=== PATIENT | male | born 1955 | race Caucasian/White ===

== ENCOUNTER 2017-07-23 12:03 | Inpatient (IN) | payer MEDICARE, MEDICAID ==
[~2017-07-23] VITALS: Ht 167.6 cm; Wt 68.0 kg
[~2017-07-23 12:03] MED LIST: SULF1TAB47 PO
[2017-07-23] MEDS ORDERED: IV NORMAL SALINE 1000 ML BAG IV ONE (12:30)
[2017-07-23] MEDS ORDERED: ACETAMINOPHEN ES 500 MG TABLET PO ONE (12:30)
[2017-07-23] MEDS ORDERED: LEVE500T20 PO (12:32)
[2017-07-23] MEDS ORDERED: ASCO500C18 PO (12:32)
[2017-07-23] MEDS ORDERED: SERT100T PO (12:32)
[2017-07-23] MEDS ORDERED: MULT1TAB73 PO (12:32)
[2017-07-23] MEDS ORDERED: CHLO1LIQ PO ×2 (12:32→13:04)
[2017-07-23 12:56] LABS: BASOPHILS % (AUTO) 0.2 % (0.0-2.0); EOSINOPHILS % (AUTO) 0.4 % (0.0-7.0); HEMATOCRIT 44.4 % (36.7-47.1); HEMOGLOBIN 14.6 g/dL (12.5-16.3); LYMPHOCYTES # (AUTO) 1.8 K/uL (20.0-40.0); LYMPHOCYTES % (AUTO) 18.1 % (20.5-51.5); MEAN CORPUSCULAR HGB CONC 33 g/dL (32.5-36.3); MEAN CORPUSCULAR VOLUME 94.2 fL (73.0-96.2); MONOCYTES # (AUTO) 0.9 K/uL (2.0-10.0); MONOCYTES % (AUTO) 9.2 % (0.0-11.0); NEUTROPHILS # (AUTO) 7.2 K/uL (1.8-8.9); NEUTROPHILS % (AUTO) 72.1 % (38.5-71.5); PLATELET COUNT (AUTO) 197 K/uL (152-348); RED BLOOD CELL COUNT(AUTO) 4.71 MIL/uL (4.06-5.63)
[2017-07-23] MEDS ORDERED: ACETAMINOPHEN ES 500 MG TABLET ONE (12:59)
[2017-07-23] MEDS ORDERED: ALEN35TA29 PO (13:04)
[2017-07-23] MEDS ORDERED: HYDR30CR10 TP (13:04)
[2017-07-23] MEDS ORDERED: DIPH25TA62 PO (13:04)
[2017-07-23] MEDS ORDERED: EMTR1TAB14 PO (13:04)
[2017-07-23] MEDS ORDERED: TRIA15CR2 TP (13:04)
[2017-07-23] MEDS ORDERED: DIPH1TAB PO (13:04)
[2017-07-23] MEDS ORDERED: MAGN400O6 PO (13:04)
[2017-07-23] MEDS ORDERED: ANTACID PO (13:04)
[2017-07-23] MEDS ORDERED: OXYB5TAB PO (13:04)
[2017-07-23] MEDS ORDERED: NEOM28OI12 TP (13:04)
[2017-07-23] MEDS ORDERED: MAG30ORA PO (13:04)
[2017-07-23] MEDS ORDERED: MIRT15TA7 PO (13:04)
[2017-07-23] MEDS ORDERED: ACET-73 PO (13:04)
[2017-07-23] MEDS ORDERED: GUAI100S9 PO (13:04)
[2017-07-23] MEDS ORDERED: CALC-34 PO (13:04)
[2017-07-23] MEDS ORDERED: IBUP-1953 PO (13:04)
[2017-07-23] MEDS ORDERED: DOCU-141 PO (13:04)
--- NOTE | 2017-07-23 13:13 | NUR ---
[address] per Dr. Tracy order, ST. result given to Dr. Tracy
[2017-07-23 13:21] LABS: POTASSIUM 4.4 mmol/L (3.5-5.1)
[2017-07-23 13:24] LABS: BILIRUBIN,DIRECT 0.1 mg/dL (0.0-0.2); BILIRUBIN,TOTAL 0.6 mg/dL (0.2-1.0)
--- NOTE | 2017-07-23 13:45 | NUR ---
PATIENT IS AWAKE AND ALERT. DENIES PAIN.
--- NOTE | 2017-07-23 14:45 | NUR ---
PATIENT IS AWAKE AND ALERT WITH NO COMPLAINTS.
[2017-07-23] MEDS ORDERED: LEVOFLOXACIN 750 MG/D5W 150 ML PIGGYBACK IV ONE (16:00)
[2017-07-23] MEDS ORDERED: ENOXAPARIN SODIUM 60 MG/0.6 ML DISP.SYRIN SQ ONE (16:15)
--- NOTE | 2017-07-23 16:20 | NUR ---
PATIENT REFUSED JUICE BUT DRANK WATER.
[2017-07-23] MEDS ORDERED: LEVOFLOXACIN 750MG/D5W 150 ML IV ONE (16:27)
[2017-07-23] MEDS ORDERED: ENOXAPARIN SODIUM 100 MG/ML DISP.SYRIN SQ ONE (16:27)
[2017-07-23 16:42] LABS: *BILIRUBIN,URIN NEGATIVE (NEGATIVE); *BLOOD, URINE 1+ (NEGATIVE); *COLOR,URINE DARK YELLOW (YELLOW); *KETONES,URINE NEGATIVE (NEGATIVE); *PROTEIN,URINE 2+ (NEGATIVE); *UROBILINOGEN,URINE 0.2 E.U./dl (NORMAL); LEUKOCYTE ESTERASE ,URINE NEGATIVE (NEGATIVE); NITRITE, URINE NEGATIVE (NEGATIVE); PH,URINE 5.5 (5.0-8.0); UGLUCOSE NEGATIVE (NEGATIVE)
[2017-07-23 17:03] LABS: *CLARITY,URINE HAZY (CLEAR)
[2017-07-23 17:04] LABS: COARSE GRANULAR CASTS,URINE 0-3 /LPF; MUCUS,URINE MANY /LPF (0-FEW); WBC,URINE 0-3 /HPF (0-3)
[2017-07-23] MEDS ORDERED: MORPHINE SULFATE 4 MG/1 ML DISP.SYRIN IV ONE (17:30)
--- NOTE | 2017-07-23 18:05 | NUR ---
URINE SENT TO LAB.
[2017-07-23] MEDS ORDERED: IOHEXOL 300MG/ML 100 ML INFUS..BTL ONE (19:40)
[2017-07-23] MEDS ORDERED: IV NORMAL SALINE 250 ML IV ONE (19:40)
--- NOTE | 2017-07-23 20:19 | NUR ---
PT RETURNED FROM CT SCAN, POSTIONED FOR COMFORT.
--- NOTE | 2017-07-23 21:30 | NUR ---
PATIENT TRANSFERRED FROM ER INTO TELEMETRY FLOOR AT THIS TIME [facility]ROUGH [facility] IN STABLE CONDITION, NO S/S OF DISTRESS, VITAL SIGNS STABLE. PLACED ON STAKEHOLDER MANAGER. PATIENT IS NON-VERBAL, APPEARS FEARFUL AND CONFUSED. [place] SPEAKING ONLY. ABLE TO COMMUNICATE WITH PATIENT. AWAITING ADMISSION ORDERS. BED IN LOCKED/LOW POSITION, SIDE RAILS UP X2, BED ALARM ON, CALL LIGHT WITHIN REACH. SAFETY/COMFORT WILL BE PROVIDED.
--- NOTE | 2017-07-23 22:00 | NUR ---
TEMPERATURE ELEVATED, COOLING MEASURES PROVIDED.
[2017-07-23 22:21] VITALS: BP 104/62
[2017-07-23] MEDS ORDERED: ALBUTEROL SULFATE 1.25 MG/3 ML NEBU NEB PRN (22:45)
[2017-07-23] MEDS ORDERED: MORPHINE SULFATE 2 MG/1 ML DISP.SYRIN IV PRN (22:45)
[2017-07-23] MEDS ORDERED: LEVETIRACETAM IV 1,000 MG in IV DEXTROSE 5% 100 ML IV SCH (22:45)
[2017-07-23] MEDS ORDERED: ACETAMINOPHEN 650 MG SUPP.RECT RC PRN (22:45)
[2017-07-23] MEDS ORDERED: LORAZEPAM 2 MG/1 ML VIAL IV PRN (22:45)
[2017-07-23] MEDS ORDERED: ONDANSETRON 4 MG/2 ML VIAL IV PRN (22:45)
[2017-07-23] MEDS: IV D5/ 0.9% NACL 1,000 ML IV PRN (23:25)
[2017-07-24 00:25] VITALS: BP 104/73
[2017-07-24] MEDS ORDERED: LEVETIRACETAM 500 MG/5 ML VIAL IV ONE (00:27)
[2017-07-24 04:00] VITALS: BP 110/63
[2017-07-24 08:04] LABS: BASOPHILS % (AUTO) 0.3 % (0.0-2.0); EOSINOPHILS # (AUTO) 0.1 K/uL (0.0-0.7); EOSINOPHILS % (AUTO) 1.7 % (0.0-7.0); LYMPHOCYTES # (AUTO) 1.3 K/uL (20.0-40.0); MEAN CORPUSCULAR HEMOGLOBIN 31.9 uug (23.8-33.4); MEAN CORPUSCULAR HGB CONC 34 g/dL (32.5-36.3); MONOCYTES # (AUTO) 0.7 K/uL (2.0-10.0); MONOCYTES % (AUTO) 10.4 % (0.0-11.0); NEUTROPHILS # (AUTO) 4.8 K/uL (1.8-8.9); NEUTROPHILS % (AUTO) 68.6 % (38.5-71.5); PLATELET COUNT (AUTO) 161 K/uL (152-348); RED BLOOD CELL COUNT(AUTO) 3.94 MIL/uL (4.06-5.63)
[2017-07-24] MEDS ORDERED: MORPHINE SULFATE 4 MG/1 ML DISP.SYRIN IV PRN (08:15)
[2017-07-24 08:31] LABS: HEMOGLOBIN 12.6 g/dL (12.5-16.3); THYROID STIMULATING HORMONE 4.802 mIU/mL (0.358-3.740); WHITE BLOOD COUNT (AUTO) 7.1 K/uL (3.6-10.2)
[2017-07-24 08:43] LABS: BILIRUBIN,TOTAL 0.6 mg/dL (0.2-1.0); CREATININE 0.8 mg/dL (0.6-1.3); MAGNESIUM 1.9 mg/dL (1.8-2.4); PHOSPHOROUS 2.7 mg/dL (2.5-4.9); POTASSIUM 3.6 mmol/L (3.5-5.1); TOTAL PROTEIN, SERUM 6.6 g/dL (6.4-8.2)
[2017-07-24] MEDS: FAMOTIDINE. 20 MG/2 ML VIAL IV SCH ×2 (10:21→21:25)
[2017-07-24] MEDS: LEVETIRACETAM IV 1,000 MG in IV DEXTROSE 5% 100 ML IV SCH ×2 (10:24→21:26)
[2017-07-24] MEDS: ENOXAPARIN SODIUM 80 MG/0.8 ML DISP.SYRIN SQ SCH ×2 (10:24→21:25)
[2017-07-24 11:24] VITALS: BP 99/63
[2017-07-24] MEDS: IV D5/ 0.9% NACL 1,000 ML IV PRN (13:54)
[2017-07-24 15:32] VITALS: BP 96/60
[2017-07-24 19:44] VITALS: BP 93/56
--- NOTE | 2017-07-24 20:00 | NUR ---
nsg: pt received a/o x 3. denies discomfort. on cont ivf tele, SR. has right sided weakness with facial drooping due to old stroke. will cont to monitor.
[2017-07-24 23:32] VITALS: BP 82/49
[2017-07-24] MEDS: PIPERACILLIN/TAZOBACTAM/D5W 3.375 G in PREMIXED 1 EACH IV SCH (23:37)
[2017-07-24] MEDS ORDERED: PIPERACILLIN SODIUM/TAZO 3.375 GM VIAL ONE (23:51)
[2017-07-25 01:03] VITALS: BP 94/61
[2017-07-25 03:32] VITALS: BP 98/63
[2017-07-25] MEDS: PIPERACILLIN/TAZOBACTAM/D5W 3.375 G in PREMIXED 1 EACH IV SCH ×3 (05:27→23:30)
--- NOTE | 2017-07-25 05:56 | NUR ---
NSG: Pt awake, iv on right antecubital got pulled out. started iv on left hand heplock. all needs attended. kept clean and dry. repositioned. cont with treatment plan. remains npo.
[2017-07-25 06:51] LABS: BASOPHILS % (AUTO) 0.4 % (0.0-2.0); EOSINOPHILS # (AUTO) 0.2 K/uL (0.0-0.7); EOSINOPHILS % (AUTO) 2.9 % (0.0-7.0); HEMATOCRIT 35.4 % (36.7-47.1); LYMPHOCYTES # (AUTO) 1.3 K/uL (20.0-40.0); LYMPHOCYTES % (AUTO) 20.2 % (20.5-51.5); MEAN CORPUSCULAR HEMOGLOBIN 31.7 uug (23.8-33.4); MEAN CORPUSCULAR HGB CONC 34 g/dL (32.5-36.3); MEAN CORPUSCULAR VOLUME 93.3 fL (73.0-96.2); MONOCYTES # (AUTO) 0.6 K/uL (2.0-10.0); MONOCYTES % (AUTO) 9.2 % (0.0-11.0); NEUTROPHILS # (AUTO) 4.5 K/uL (1.8-8.9); NEUTROPHILS % (AUTO) 67.3 % (38.5-71.5); PLATELET COUNT (AUTO) 172 K/uL (152-348); WHITE BLOOD COUNT (AUTO) 6.6 K/uL (3.6-10.2)
[2017-07-25 07:55] LABS: BILIRUBIN,TOTAL 0.6 mg/dL (0.2-1.0); CREATININE 0.9 mg/dL (0.6-1.3); PHOSPHOROUS 2.5 mg/dL (2.5-4.9); POTASSIUM 3.4 mmol/L (3.5-5.1); TOTAL PROTEIN, SERUM 6.3 g/dL (6.4-8.2)
[2017-07-25 08:00] VITALS: BP 101/65
[2017-07-25] MEDS: IV D5/ 0.9% NACL 1,000 ML IV PRN (09:13)
[2017-07-25] MEDS: LEVETIRACETAM IV 1,000 MG in IV DEXTROSE 5% 100 ML IV SCH ×2 (09:54→20:50)
[2017-07-25] MEDS: FAMOTIDINE. 20 MG/2 ML VIAL IV SCH ×2 (09:55→20:50)
[2017-07-25] MEDS: ENOXAPARIN SODIUM 80 MG/0.8 ML DISP.SYRIN SQ SCH ×2 (09:55→20:51)
[2017-07-25] MEDS ORDERED: POTASSIUM CHLORIDE 50 ML IV SCH (12:30)
[2017-07-25] MEDS ORDERED: POTASSIUM CHLORIDE 10 MEQ in IV DEXTROSE 5% 100 ML IV SCH (13:30)
[2017-07-25 16:00] VITALS: BP 106/65
[2017-07-25 19:30] VITALS: BP 100/70
--- NOTE | 2017-07-25 20:00 | NUR ---
AWAKE,CONFUSED,PULLED IV ONCE .UNABLE TO COMPREHEND,PT MADE COMFORTABLE
--- NOTE | 2017-07-25 21:00 | NUR ---
PT PULLED CATHETER ,PUT IT IN HIS BELONGING BAG.PT MADE COMFORTABLE.
[2017-07-26 02:30] VITALS: BP 110/80
--- NOTE | 2017-07-26 02:30 | NUR ---
PT FOUND ON THE FLOOR.,BACK TO BED NO COMPLAINTS ABLE TO FOLLOW INSTRUCTION.DR SOTO CALLED AND STAT CT OF HEAD ORDERED , BACK TO BED.
[2017-07-26 04:00] VITALS: BP 101/66
[2017-07-26] MEDS: PIPERACILLIN/TAZOBACTAM/D5W 3.375 G in PREMIXED 1 EACH IV SCH (05:18)
--- NOTE | 2017-07-26 05:48 | NUR ---
PT VERY CONFUSED,PT WANTED TO GO HOME, TEMPORARY SITTER PLACED ON PT.
--- NOTE | 2017-07-26 06:29 | NUR ---
PT BLADDER SCAN 200.PT WANTED TO GET OUT OF BED,ER NURSE DENA INSERTED SHANKAR CATHETER.
--- NOTE | 2017-07-26 08:03 | NUR ---
RECEIVED PATIENT IN BED CONFUSED AND DISORIENTED PULLING ON HIS IV AND SHANKAR HE IS VERY RESTLESS SHOWING SIGNS OF FACIAL GRIMACING UNABLE TO VERBALISE NEEDS MEDICATED WITH MORPHINE ORDERED MADE COMFORTABLE AND WILL CONTINUE TO OBSERVE.
[2017-07-26 08:28] LABS: BASOPHILS % (AUTO) 0.3 % (0.0-2.0); EOSINOPHILS # (AUTO) 0.2 K/uL (0.0-0.7); EOSINOPHILS % (AUTO) 2.7 % (0.0-7.0); HEMATOCRIT 35.4 % (36.7-47.1); LYMPHOCYTES # (AUTO) 1.3 K/uL (20.0-40.0); LYMPHOCYTES % (AUTO) 20.4 % (20.5-51.5); MEAN CORPUSCULAR HEMOGLOBIN 31.4 uug (23.8-33.4); MEAN CORPUSCULAR HGB CONC 34 g/dL (32.5-36.3); MEAN CORPUSCULAR VOLUME 92.4 fL (73.0-96.2); MONOCYTES # (AUTO) 0.5 K/uL (2.0-10.0); MONOCYTES % (AUTO) 8.6 % (0.0-11.0); NEUTROPHILS # (AUTO) 4.2 K/uL (1.8-8.9); PLATELET COUNT (AUTO) 215 K/uL (152-348); RED BLOOD CELL COUNT(AUTO) 3.83 MIL/uL (4.06-5.63); WHITE BLOOD COUNT (AUTO) 6.1 K/uL (3.6-10.2)
[2017-07-26 08:52] LABS: CREATININE 0.8 mg/dL (0.6-1.3); PHOSPHOROUS 2.7 mg/dL (2.5-4.9); POTASSIUM 3.5 mmol/L (3.5-5.1)
[2017-07-26] MEDS: ENOXAPARIN SODIUM 80 MG/0.8 ML DISP.SYRIN SQ SCH (09:22)
[2017-07-26] MEDS: LEVETIRACETAM IV 1,000 MG in IV DEXTROSE 5% 100 ML IV SCH ×2 (09:38→21:21)
--- NOTE | 2017-07-26 10:00 | NUR ---
SHANKAR CATH WITH HEMATURIA WITH FEW CLOTS IRRIGATED AND CHANGED BY THE POST DOCTORAL FELLOW TO FAROESE 16 CUDE CONNECTED TO GRAVITY DRAINAGE AND WILL CONTINUE TO OBSERVE.
[2017-07-26] MEDS: FAMOTIDINE. 20 MG/2 ML VIAL IV SCH ×2 (10:39→21:22)
[2017-07-26 12:14] VITALS: BP 98/61
[2017-07-26] MEDS: IV D5/ 0.9% NACL 1,000 ML IV PRN (12:54)
[2017-07-26] MEDS ORDERED: LIDOCAINE HCL 2% 20 ML VIAL IJ ONE (13:30)
[2017-07-26] MEDS ORDERED: LIDOCAINE 2% (UROJET) 10 ML JELLY MM ONE (13:45)
--- NOTE | 2017-07-26 13:57 | NUR ---
DR ST HERE AND SEEN PATIENT IRRIGATED AND CHANGED THE SHANKAR AND USED THE LIDOCINE JELLY ORDERED.
[2017-07-26 15:28] VITALS: BP 95/56
--- NOTE | 2017-07-26 16:35 | NUR ---
SHANKAR DRAINAGE IS PINKISH AT THIS TIME WITH NO CLOTS NOTED WILL OBSERVE.
--- NOTE | 2017-07-26 18:00 | NUR ---
AWAKE EATING DINNER NO S/S OF PAIN OR DISCOMFORTS SHANKAR STILL WITH PINKISH DRAINAGE WILL CONTINUE TO OBSERVE.
[2017-07-27] MEDS: ENOXAPARIN SODIUM 80 MG/0.8 ML DISP.SYRIN SQ SCH ×2 (00:16→08:32)
[2017-07-27] MEDS ORDERED: ENOXAPARIN SODIUM 40 MG/0.4 ML DISP.SYRIN SQ ONE (00:25)
[2017-07-27] MEDS: IV D5/ 0.9% NACL 1,000 ML IV PRN (03:09)
--- NOTE | 2017-07-27 05:45 | NUR ---
PT SLEPT THROUGHOUT THE SHIFT. NO S/S OF PAIN. SHANKAR CATHETER WITH HEMATURIA. MEDICATION ORDERED WAS GIVEN TO PT. CALL LIGHT WITHIN REACH. SITTER ON BEDSIDE. SAFETY AND COMFORT PROVIDED.
--- NOTE | 2017-07-27 06:30 | NUR ---
SHANKAR CATH IRRIGATION PRN ORDERED. BLOOD CLOTS NOTED. PT NOT IN DISTRESS. AFEBRILE. PICTURE TAKEN ON HIS RIGHT LOWER EXTREMITY.
--- NOTE | 2017-07-27 07:30 | NUR ---
RECEIVED PATIENT IN BED WITH EYES CLOSED BUT EASILY OPENS EYES WHEN NAME IS CALLED BUT DOES NOT ENGAGE IN CONVERSATION ON ROOM AIR WITH NO SHORTNESS OF BREATH AT THIS TIME REMAIN [facility] WITH NO CLOTS AT THIS TIME HE HAS A ONE ON ONE SITTER FOR SAFETY AT [facility] FOR FALLS RELATED TO CONFUSSION AND POOR SAFETY AWARENESS WILL CONTINUE TO OBSERVE
[2017-07-27 07:33] LABS: CREATININE 0.8 mg/dL (0.6-1.3); POTASSIUM 3.3 mmol/L (3.5-5.1)
[2017-07-27 07:36] LABS: BASOPHILS % (AUTO) 0.4 % (0.0-2.0); EOSINOPHILS # (AUTO) 0.2 K/uL (0.0-0.7); EOSINOPHILS % (AUTO) 3.3 % (0.0-7.0); HEMATOCRIT 30.5 % (36.7-47.1); HEMOGLOBIN 10.4 g/dL (12.5-16.3); LYMPHOCYTES # (AUTO) 1.3 K/uL (20.0-40.0); LYMPHOCYTES % (AUTO) 22.3 % (20.5-51.5); MEAN CORPUSCULAR HEMOGLOBIN 31.7 uug (23.8-33.4); MEAN CORPUSCULAR HGB CONC 34 g/dL (32.5-36.3); MEAN CORPUSCULAR VOLUME 93.1 fL (73.0-96.2); MONOCYTES # (AUTO) 0.7 K/uL (2.0-10.0); MONOCYTES % (AUTO) 11.3 % (0.0-11.0); NEUTROPHILS # (AUTO) 3.7 K/uL (1.8-8.9); NEUTROPHILS % (AUTO) 62.7 % (38.5-71.5); PLATELET COUNT (AUTO) 206 K/uL (152-348); RED BLOOD CELL COUNT(AUTO) 3.27 MIL/uL (4.06-5.63)
[2017-07-27] MEDS: FAMOTIDINE. 20 MG/2 ML VIAL IV SCH (08:33)
[2017-07-27] MEDS: LEVETIRACETAM IV 1,000 MG in IV DEXTROSE 5% 100 ML IV SCH (08:35)
[2017-07-27] MEDS ORDERED: RIVAROXABAN 15 MG TABLET PO SCH ×2 (10:30→18:00)
[2017-07-27 11:17] VITALS: BP 91/60
[2017-07-27] MEDS ORDERED: RIVA15TA PO (13:01)
[2017-07-27] MEDS ORDERED: POTASSIUM CHLORIDE 20 MEQ POWDER PACKET PO ONE (14:30)
--- NOTE | 2017-07-27 14:30 | NUR ---
PATIENT IS BEING PREPPED FOR DISCHARGE TO ACUTE REHAB TODAY.
--- NOTE | 2017-07-27 16:00 | NUR ---
DR ST HERE TO SEE PATIENT WITH HAND WRITTEN ORDER WILL ENDORSE TO REHAB TO START THE ORDER.
--- NOTE | 2017-07-27 18:23 | NUR ---
CALLED LALIT AT THE ACUTE REHAB AND REPORT GIVEN TO HER FOR CONTINUING CARE XARELTO GIVEN ORDERED WITH NO ADVERSE OR ALLERGIC REACTIONS AT THIS TIME.PATIENTS MONEY LEFT IN THE HOSPITAL SAFE AND IT WAS ENDORSED TO THE RECEIVING RN.
--- NOTE | 2017-07-27 18:25 | NUR ---
AWAITING FOR ROOM 105 TO BE CLEANSED AND READY TO RECEIVE PATIENT PER THE RECEIVING RN.
--- NOTE | 2017-07-27 18:50 | NUR ---
PATIENT TAKEN DOWN BY W/CHAIR WITH ALL HIS BELONGINGS WITH HIS MONEY LEFT IN THE HOSPITAL SAFE IN SATISFACTORY CONDITION.
[2017-07-28 08:06] LABS: *TESTOSTERONE, SERUM 265 ng/dL (264-916)
== END 2017-07-27 18:40 | DRG 300 ==
LOC: ER 12:03 → TELE 21:18 → MED 07-25 23:20
PROVIDERS: ADMIT Internal Medicine; ATTEND Internal Medicine
PROC: 0T9B70Z Drainage of Bladder with Drainage Device, Via Natural or Artificial Opening (ICD-10-PCS; principal; 2017-07-26)
DX: I82.421 Acute embolism and thrombosis of right iliac vein (principal); I69.351 Hemiplegia and hemiparesis following cerebral infarction affecting right dominant side; F01.50 Vascular dementia, unspecified severity, without behavioral disturbance, psychotic disturbance, mood disturbance, and anxiety; I82.431 Acute embolism and thrombosis of right popliteal vein; D68.59 Other primary thrombophilia; R47.01 Aphasia; I82.441 Acute embolism and thrombosis of right tibial vein; I69.398 Other sequelae of cerebral infarction; I69.318 Other symptoms and signs involving cognitive functions following cerebral infarction; G40.909 Epilepsy, unspecified, not intractable, without status epilepticus; K80.20 Calculus of gallbladder without cholecystitis without obstruction; K57.30 Diverticulosis of large intestine without perforation or abscess without bleeding; K42.9 Umbilical hernia without obstruction or gangrene; Z74.01 Bed confinement status; Z86.19 Personal history of other infectious and parasitic diseases; R31.29 Other microscopic hematuria; Z79.899 Other long term (current) drug therapy; R50.9 Fever, unspecified; T83.028A Displacement of other urinary catheter, initial encounter; R31.9 Hematuria, unspecified; Z79.01 Long term (current) use of anticoagulants; I69.392 Facial weakness following cerebral infarction
CPT/HCPCS: 36415; 70030-TC; 70450; 71010; 83735; 84100; 84153; 84403; 84443; 85025; 85730; 87040; 87086; 87400; 92610; 93005; 93880; 97116; 97530; A4217; A4663; J1650; J1953; J1956; J2270; J2543; J3480; J3490; J7030; J7042; J7050; J7060; Q9967

== ENCOUNTER 2017-07-27 19:10 | Inpatient (IN) | payer MEDICARE, MEDICAID ==
[~2017-07-27 19:10] MED LIST changes: +ACET-73 PO; +ALEN35TA29 PO; +ANTACID PO; +ASCO500C18 PO; +CALC-34 PO; +CHLO1LIQ PO; +DIPH1TAB PO; +DIPH25TA62 PO; +DOCU-141 PO; +EMTR1TAB14 PO; +GUAI100S9 PO; +HYDR30CR10 TP; +IBUP-1953 PO; +LEVE500T20 PO; +MAG30ORA PO; +MAGN400O6 PO; +MIRT15TA7 PO; +MULT1TAB73 PO; +NEOM28OI12 TP; +OXYB5TAB PO; +RIVA15TA PO; +SERT100T PO; +TRIA15CR2 TP
[2017-07-27 19:30] VITALS: BP 109/66
[2017-07-27] MEDS ORDERED: IBUPROFEN 400 MG TABLET PO PRN (20:00)
[2017-07-27] MEDS ORDERED: ALENDRONATE SODIUM 35 MG PO SCH (20:00)
[2017-07-27] MEDS ORDERED: Medication Not On Formulary EA (Multivitamins (Multivitamin) 1 TAB) PO SCH (20:00)
[2017-07-27] MEDS ORDERED: ACETAMINOPHEN ES 500 MG TABLET PO PRN (20:00)
[2017-07-27] MEDS ORDERED: GUAIFENESIN SUGAR FREE 100 MG/5 ML UDC PO PRN (20:00)
[2017-07-27] MEDS ORDERED: MAG HYDROX/AL HYDROX/SIMETH 30 ML LIQUID UDC PO PRN (20:00)
[2017-07-27] MEDS ORDERED: DOCUSATE SODIUM 100 MG CAPSULE PO PRN (20:00)
[2017-07-27] MEDS ORDERED: diphenhydrAMINE 25 MG CAP PO PRN (20:00)
[2017-07-27] MEDS ORDERED: Medication Not On Formulary EA (Ascorbic Acid (Vitamin C) 500 MG) PO SCH (20:00)
[2017-07-27] MEDS ORDERED: MAGNESIUM HYDROXIDE 30 ML LIQUID UDC PO PRN (20:00)
[2017-07-27] MEDS ORDERED: TRIAMCINOLONE ACET 0.5% CREAM 15 GM TUBE TP SCH (20:00)
[2017-07-27] MEDS ORDERED: HYDROCORTISONE 1% CREAM 30 GM TUBE TP PRN (20:00)
[2017-07-27] MEDS ORDERED: CHLORHEXIDINE 0.12% PO PRN (20:00)
[2017-07-27] MEDS ORDERED: CHLORHEXIDINE PO SCH (20:00)
[2017-07-27] MEDS ORDERED: SERTRALINE HCL 100 MG TABLET ONE (21:33)
[2017-07-27] MEDS ORDERED: LEVETIRACETAM 500 MG TABLET ONE (21:35)
[2017-07-27] MEDS ORDERED: MIRTAZAPINE 15 MG TABLET ONE (21:35)
[2017-07-27] MEDS ORDERED: OXYBUTYNIN XL 5 MG TABSR PO ONE (21:35)
[2017-07-27] MEDS: SERTRALINE HCL 100 MG TABLET PO SCH (21:41)
[2017-07-27] MEDS: LEVETIRACETAM 500 MG TABLET PO SCH (21:41)
[2017-07-27] MEDS: MIRTAZAPINE 15 MG TABLET PO SCH (21:42)
[2017-07-27] MEDS: OXYBUTYNIN XL 5 MG TABSR PO SCH (21:43)
[2017-07-27] MEDS: RIVAROXABAN 15 MG TABLET PO SCH (21:44)
[2017-07-28] MEDS ORDERED: TRIAMCINOLONE ACET 0.5% CREAM 15 GM TUBE TP SCH (07:47)
[2017-07-28 07:51] VITALS: BP 103/61
[2017-07-28] MEDS: RIVAROXABAN 15 MG TABLET PO SCH ×2 (08:00→17:05)
[2017-07-28] MEDS: LEVETIRACETAM 500 MG TABLET PO SCH ×2 (08:44→17:04)
[2017-07-28] MEDS: ASCORBIC ACID 500 MG TABLET PO SCH (08:44)
[2017-07-28] MEDS: ALFUZOSIN HCL 10 MG TAB.SR.24H PO SCH (08:44)
[2017-07-28] MEDS: CALCIUM CARB/VITAMIN D 500MG-200UNITS TABLET PO SCH (08:44)
[2017-07-28] MEDS: MULTIVITAMINS,THERAPEUTIC TABLET PO SCH (08:44)
[2017-07-28] MEDS: OXYBUTYNIN XL 5 MG TABSR PO SCH (08:45)
[2017-07-28] MEDS: TRIAMCINOLONE ACET 0.1% CREAM 15 GM TUBE TP SCH ×2 (09:00→17:04)
[2017-07-28] MEDS: CHLORHEXIDINE GLUCONATE 15 ML MOUTHWASH MM SCH ×2 (09:00→20:34)
[2017-07-28 20:11] VITALS: BP 94/60
[2017-07-28] MEDS: MIRTAZAPINE 15 MG TABLET PO SCH (20:33)
[2017-07-28] MEDS: SERTRALINE HCL 100 MG TABLET PO SCH (20:33)
[2017-07-29] MEDS: OXYBUTYNIN XL 5 MG TABSR PO SCH (09:09)
[2017-07-29] MEDS: ASCORBIC ACID 500 MG TABLET PO SCH (09:09)
[2017-07-29] MEDS: LEVETIRACETAM 500 MG TABLET PO SCH ×2 (09:09→17:24)
[2017-07-29] MEDS: MULTIVITAMINS,THERAPEUTIC TABLET PO SCH (09:09)
[2017-07-29] MEDS: CALCIUM CARB/VITAMIN D 500MG-200UNITS TABLET PO SCH (09:09)
[2017-07-29] MEDS: ALFUZOSIN HCL 10 MG TAB.SR.24H PO SCH (09:10)
[2017-07-29] MEDS: CHLORHEXIDINE GLUCONATE 15 ML MOUTHWASH MM SCH ×2 (09:10→20:49)
[2017-07-29] MEDS: TRIAMCINOLONE ACET 0.1% CREAM 15 GM TUBE TP SCH ×2 (09:10→17:24)
[2017-07-29] MEDS: RIVAROXABAN 15 MG TABLET PO SCH ×2 (09:11→17:23)
[2017-07-29 11:01] VITALS: BP 101/62
[2017-07-29 19:49] VITALS: BP 96/62
[2017-07-29] MEDS: SERTRALINE HCL 100 MG TABLET PO SCH (20:47)
[2017-07-29] MEDS: MIRTAZAPINE 15 MG TABLET PO SCH (20:47)
[2017-07-29 20:49] VITALS: BP 96/62
[2017-07-30] MEDS: MULTIVITAMINS,THERAPEUTIC TABLET PO SCH (08:58)
[2017-07-30] MEDS: ASCORBIC ACID 500 MG TABLET PO SCH (08:58)
[2017-07-30] MEDS: CALCIUM CARB/VITAMIN D 500MG-200UNITS TABLET PO SCH (08:58)
[2017-07-30] MEDS: LEVETIRACETAM 500 MG TABLET PO SCH ×2 (08:59→17:20)
[2017-07-30] MEDS: OXYBUTYNIN XL 5 MG TABSR PO SCH (08:59)
[2017-07-30] MEDS: ALFUZOSIN HCL 10 MG TAB.SR.24H PO SCH (09:00)
[2017-07-30] MEDS: TRIAMCINOLONE ACET 0.1% CREAM 15 GM TUBE TP SCH ×2 (09:01→17:20)
[2017-07-30] MEDS: CHLORHEXIDINE GLUCONATE 15 ML MOUTHWASH MM PRN (09:02)
[2017-07-30] MEDS: RIVAROXABAN 15 MG TABLET PO SCH ×2 (09:04→18:25)
[2017-07-30] MEDS: CHLORHEXIDINE GLUCONATE 15 ML MOUTHWASH MM SCH ×2 (09:08→21:04)
[2017-07-30 10:31] VITALS: BP 99/64
[2017-07-30] MEDS: PATIENT MAY USE OWN MED- MD OK PO SCH (17:20)
[2017-07-30 19:40] VITALS: BP 96/59
[2017-07-30] MEDS: MIRTAZAPINE 15 MG TABLET PO SCH (21:03)
[2017-07-30] MEDS: SERTRALINE HCL 100 MG TABLET PO SCH (21:03)
[2017-07-31 07:13] VITALS: BP 95/57
[2017-07-31 07:15] VITALS: BP 150/72
[2017-07-31] MEDS: OXYBUTYNIN XL 5 MG TABSR PO SCH (08:47)
[2017-07-31] MEDS: CALCIUM CARB/VITAMIN D 500MG-200UNITS TABLET PO SCH (08:47)
[2017-07-31] MEDS: ASCORBIC ACID 500 MG TABLET PO SCH (08:47)
[2017-07-31] MEDS: MULTIVITAMINS,THERAPEUTIC TABLET PO SCH (08:48)
[2017-07-31] MEDS: PATIENT MAY USE OWN MED- MD OK PO SCH (08:48)
[2017-07-31] MEDS: LEVETIRACETAM 500 MG TABLET PO SCH ×2 (08:48→17:01)
[2017-07-31] MEDS: CHLORHEXIDINE GLUCONATE 15 ML MOUTHWASH MM PRN (08:48)
[2017-07-31] MEDS: RIVAROXABAN 15 MG TABLET PO SCH ×2 (08:48→17:04)
[2017-07-31] MEDS: ALFUZOSIN HCL 10 MG TAB.SR.24H PO SCH (08:49)
[2017-07-31] MEDS: TRIAMCINOLONE ACET 0.1% CREAM 15 GM TUBE TP SCH ×2 (08:49→17:01)
[2017-07-31] MEDS: CHLORHEXIDINE GLUCONATE 15 ML MOUTHWASH MM SCH ×2 (08:49→20:41)
[2017-07-31] MEDS: MIRTAZAPINE 15 MG TABLET PO SCH (20:40)
[2017-07-31] MEDS: SERTRALINE HCL 100 MG TABLET PO SCH (20:41)
[2017-07-31 20:53] VITALS: BP 96/56
[2017-08-01] MEDS: ALENDRONATE 35 MG PO SCH (05:33)
[2017-08-01 07:11] VITALS: BP 90/48
[2017-08-01] MEDS: MULTIVITAMINS,THERAPEUTIC TABLET PO SCH (08:13)
[2017-08-01] MEDS: OXYBUTYNIN XL 5 MG TABSR PO SCH (08:13)
[2017-08-01] MEDS: CALCIUM CARB/VITAMIN D 500MG-200UNITS TABLET PO SCH (08:13)
[2017-08-01] MEDS: ASCORBIC ACID 500 MG TABLET PO SCH (08:13)
[2017-08-01] MEDS: TRIAMCINOLONE ACET 0.1% CREAM 15 GM TUBE TP SCH ×2 (08:13→17:04)
[2017-08-01] MEDS: RIVAROXABAN 15 MG TABLET PO SCH ×2 (08:19→17:05)
[2017-08-01] MEDS: ALFUZOSIN HCL 10 MG TAB.SR.24H PO SCH (08:20)
[2017-08-01] MEDS: CHLORHEXIDINE GLUCONATE 15 ML MOUTHWASH MM SCH ×2 (08:20→21:05)
[2017-08-01] MEDS: PATIENT MAY USE OWN MED- MD OK PO SCH (08:22)
[2017-08-01] MEDS: LEVETIRACETAM 500 MG TABLET PO SCH ×2 (12:00→17:04)
[2017-08-01 20:00] VITALS: BP 93/58
[2017-08-01] MEDS: SERTRALINE HCL 100 MG TABLET PO SCH (21:05)
[2017-08-01] MEDS: MIRTAZAPINE 15 MG TABLET PO SCH (21:05)
[2017-08-02 07:15] VITALS: BP 98/62
[2017-08-02] MEDS: CALCIUM CARB/VITAMIN D 500MG-200UNITS TABLET PO SCH (08:20)
[2017-08-02] MEDS: MULTIVITAMINS,THERAPEUTIC TABLET PO SCH (08:20)
[2017-08-02] MEDS: ASCORBIC ACID 500 MG TABLET PO SCH (08:20)
[2017-08-02] MEDS: OXYBUTYNIN XL 5 MG TABSR PO SCH (08:21)
[2017-08-02] MEDS: LEVETIRACETAM 500 MG TABLET PO SCH ×2 (08:21→17:35)
[2017-08-02] MEDS: CHLORHEXIDINE GLUCONATE 15 ML MOUTHWASH MM SCH ×2 (08:23→20:33)
[2017-08-02] MEDS: PATIENT MAY USE OWN MED- MD OK PO SCH (08:23)
[2017-08-02] MEDS: ALFUZOSIN HCL 10 MG TAB.SR.24H PO SCH (08:24)
[2017-08-02] MEDS: RIVAROXABAN 15 MG TABLET PO SCH ×2 (08:30→17:38)
[2017-08-02] MEDS: TRIAMCINOLONE ACET 0.1% CREAM 15 GM TUBE TP SCH ×2 (08:31→17:35)
[2017-08-02] MEDS: MIRTAZAPINE 15 MG TABLET PO SCH (20:33)
[2017-08-02] MEDS: SERTRALINE HCL 100 MG TABLET PO SCH (20:33)
[2017-08-02 22:30] VITALS: BP 94/58
[2017-08-03 08:32] LABS: EOSINOPHILS # (AUTO) 0.2 K/uL (0.0-0.7); HEMOGLOBIN 11.5 g/dL (12.5-16.3); LYMPHOCYTES # (AUTO) 1.3 K/uL (20.0-40.0); MEAN CORPUSCULAR HEMOGLOBIN 31.6 uug (23.8-33.4); MONOCYTES # (AUTO) 0.5 K/uL (2.0-10.0); NEUTROPHILS # (AUTO) 3.2 K/uL (1.8-8.9); WHITE BLOOD COUNT (AUTO) 5.2 K/uL (3.6-10.2)
[2017-08-03] MEDS: RIVAROXABAN 15 MG TABLET PO SCH ×2 (08:42→18:00)
[2017-08-03] MEDS: CHLORHEXIDINE GLUCONATE 15 ML MOUTHWASH MM SCH ×2 (08:43→20:16)
[2017-08-03] MEDS: OXYBUTYNIN XL 5 MG TABSR PO SCH (08:44)
[2017-08-03] MEDS: LEVETIRACETAM 500 MG TABLET PO SCH ×2 (08:44→17:54)
[2017-08-03] MEDS: CALCIUM CARB/VITAMIN D 500MG-200UNITS TABLET PO SCH (08:45)
[2017-08-03] MEDS: MULTIVITAMINS,THERAPEUTIC TABLET PO SCH (08:45)
[2017-08-03 08:46] VITALS: BP 96/51
[2017-08-03] MEDS: ALFUZOSIN HCL 10 MG TAB.SR.24H PO SCH (08:48)
[2017-08-03 08:49] LABS: BASOPHILS % (AUTO) 0.6 % (0.0-2.0); EOSINOPHILS % (AUTO) 3.5 % (0.0-7.0); HEMATOCRIT 33.6 % (36.7-47.1); LYMPHOCYTES % (AUTO) 24.6 % (20.5-51.5); MEAN CORPUSCULAR HGB CONC 34 g/dL (32.5-36.3); MEAN CORPUSCULAR VOLUME 92.4 fL (73.0-96.2); MONOCYTES % (AUTO) 9.4 % (0.0-11.0); NEUTROPHILS % (AUTO) 61.9 % (38.5-71.5); PLATELET COUNT (AUTO) 415 K/uL (152-348); RED BLOOD CELL COUNT(AUTO) 3.64 MIL/uL (4.06-5.63)
[2017-08-03] MEDS: ASCORBIC ACID 500 MG TABLET PO SCH (08:51)
[2017-08-03] MEDS: TRIAMCINOLONE ACET 0.1% CREAM 15 GM TUBE TP SCH ×2 (08:51→17:54)
[2017-08-03] MEDS: PATIENT MAY USE OWN MED- MD OK PO SCH (08:52)
[2017-08-03 09:51] LABS: BILIRUBIN,TOTAL 0.2 mg/dL (0.2-1.0); CREATININE 0.8 mg/dL (0.6-1.3); MAGNESIUM 1.9 mg/dL (1.8-2.4); PHOSPHOROUS 3.3 mg/dL (2.5-4.9); POTASSIUM 3.7 mmol/L (3.5-5.1); TOTAL PROTEIN, SERUM 6.9 g/dL (6.4-8.2)
[2017-08-03 20:00] VITALS: BP 94/57
[2017-08-03] MEDS: SERTRALINE HCL 100 MG TABLET PO SCH (20:16)
[2017-08-03] MEDS: MIRTAZAPINE 15 MG TABLET PO SCH (20:16)
[2017-08-04] MEDS: CALCIUM CARB/VITAMIN D 500MG-200UNITS TABLET PO SCH (08:11)
[2017-08-04] MEDS: ASCORBIC ACID 500 MG TABLET PO SCH (08:11)
[2017-08-04] MEDS: ALFUZOSIN HCL 10 MG TAB.SR.24H PO SCH (08:13)
[2017-08-04] MEDS: CHLORHEXIDINE GLUCONATE 15 ML MOUTHWASH MM SCH ×2 (08:14→21:25)
[2017-08-04] MEDS: LEVETIRACETAM 500 MG TABLET PO SCH ×2 (08:16→17:09)
[2017-08-04] MEDS: TRIAMCINOLONE ACET 0.1% CREAM 15 GM TUBE TP SCH ×2 (08:17→17:10)
[2017-08-04] MEDS: PATIENT MAY USE OWN MED- MD OK PO SCH (08:18)
[2017-08-04] MEDS: OXYBUTYNIN XL 5 MG TABSR PO SCH (08:25)
[2017-08-04] MEDS: MULTIVITAMINS,THERAPEUTIC TABLET PO SCH (08:28)
[2017-08-04 08:49] VITALS: BP 93/62
[2017-08-04] MEDS: RIVAROXABAN 10 MG TABLET PO SCH (17:10)
[2017-08-04] MEDS: SERTRALINE HCL 100 MG TABLET PO SCH (21:24)
[2017-08-04] MEDS: MIRTAZAPINE 15 MG TABLET PO SCH (21:24)
[2017-08-04 21:28] VITALS: BP 90/51
[2017-08-05 08:00] VITALS: BP 103/64
[2017-08-05] MEDS: CALCIUM CARB/VITAMIN D 500MG-200UNITS TABLET PO SCH (10:03)
[2017-08-05] MEDS: ASCORBIC ACID 500 MG TABLET PO SCH (10:03)
[2017-08-05] MEDS: OXYBUTYNIN XL 5 MG TABSR PO SCH (10:04)
[2017-08-05] MEDS: LEVETIRACETAM 500 MG TABLET PO SCH ×2 (10:04→17:39)
[2017-08-05] MEDS: ALFUZOSIN HCL 10 MG TAB.SR.24H PO SCH (10:04)
[2017-08-05] MEDS: MULTIVITAMINS,THERAPEUTIC TABLET PO SCH (10:04)
[2017-08-05] MEDS: TRIAMCINOLONE ACET 0.1% CREAM 15 GM TUBE TP SCH ×2 (10:05→17:39)
[2017-08-05] MEDS: CHLORHEXIDINE GLUCONATE 15 ML MOUTHWASH MM SCH ×2 (10:05→20:22)
[2017-08-05] MEDS: PATIENT MAY USE OWN MED- MD OK PO SCH (10:08)
[2017-08-05] MEDS: RIVAROXABAN 10 MG TABLET PO SCH (17:40)
[2017-08-05 19:56] VITALS: BP 98/63
[2017-08-05] MEDS: MIRTAZAPINE 15 MG TABLET PO SCH (20:23)
[2017-08-05] MEDS: SERTRALINE HCL 100 MG TABLET PO SCH (20:23)
[2017-08-06 07:30] VITALS: BP 101/61
[2017-08-06] MEDS: ASCORBIC ACID 500 MG TABLET PO SCH (08:45)
[2017-08-06] MEDS: OXYBUTYNIN XL 5 MG TABSR PO SCH (08:45)
[2017-08-06] MEDS: MULTIVITAMINS,THERAPEUTIC TABLET PO SCH (08:45)
[2017-08-06] MEDS: CHLORHEXIDINE GLUCONATE 15 ML MOUTHWASH MM PRN (08:45)
[2017-08-06] MEDS: CALCIUM CARB/VITAMIN D 500MG-200UNITS TABLET PO SCH (08:45)
[2017-08-06] MEDS: LEVETIRACETAM 500 MG TABLET PO SCH ×2 (08:45→18:03)
[2017-08-06] MEDS: PATIENT MAY USE OWN MED- MD OK PO SCH (08:46)
[2017-08-06] MEDS: TRIAMCINOLONE ACET 0.1% CREAM 15 GM TUBE TP SCH ×2 (08:46→18:03)
[2017-08-06] MEDS: ALFUZOSIN HCL 10 MG TAB.SR.24H PO SCH (08:46)
[2017-08-06] MEDS: CHLORHEXIDINE GLUCONATE 15 ML MOUTHWASH MM SCH ×2 (08:53→20:24)
[2017-08-06] MEDS: RIVAROXABAN 10 MG TABLET PO SCH (18:02)
[2017-08-06 20:19] VITALS: BP 90/52
[2017-08-06] MEDS: MIRTAZAPINE 15 MG TABLET PO SCH (20:24)
[2017-08-06] MEDS: SERTRALINE HCL 100 MG TABLET PO SCH (20:24)
[2017-08-07 08:00] VITALS: BP 96/57
[2017-08-07] MEDS: PATIENT MAY USE OWN MED- MD OK PO SCH (09:00)
[2017-08-07] MEDS: MULTIVITAMINS,THERAPEUTIC TABLET PO SCH (09:00)
[2017-08-07] MEDS: CHLORHEXIDINE GLUCONATE 15 ML MOUTHWASH MM SCH ×2 (09:00→20:26)
[2017-08-07] MEDS: TRIAMCINOLONE ACET 0.1% CREAM 15 GM TUBE TP SCH ×2 (09:00→17:07)
[2017-08-07] MEDS: ASCORBIC ACID 500 MG TABLET PO SCH (10:49)
[2017-08-07] MEDS: ALFUZOSIN HCL 10 MG TAB.SR.24H PO SCH (10:54)
[2017-08-07] MEDS: CALCIUM CARB/VITAMIN D 500MG-200UNITS TABLET PO SCH (10:54)
[2017-08-07] MEDS: OXYBUTYNIN XL 5 MG TABSR PO SCH (10:54)
[2017-08-07] MEDS: LEVETIRACETAM 500 MG TABLET PO SCH ×2 (10:54→17:07)
[2017-08-07] MEDS: RIVAROXABAN 10 MG TABLET PO SCH (17:10)
[2017-08-07 20:03] VITALS: BP 96/58
[2017-08-07] MEDS: MIRTAZAPINE 15 MG TABLET PO SCH (20:26)
[2017-08-07] MEDS: SERTRALINE HCL 100 MG TABLET PO SCH (20:26)
[2017-08-08] MEDS: ALENDRONATE 35 MG PO SCH (06:59)
[2017-08-08] MEDS: OXYBUTYNIN XL 5 MG TABSR PO SCH (08:32)
[2017-08-08] MEDS: MULTIVITAMINS,THERAPEUTIC TABLET PO SCH (08:32)
[2017-08-08] MEDS: LEVETIRACETAM 500 MG TABLET PO SCH ×2 (08:33→17:10)
[2017-08-08] MEDS: ASCORBIC ACID 500 MG TABLET PO SCH (08:33)
[2017-08-08] MEDS: CALCIUM CARB/VITAMIN D 500MG-200UNITS TABLET PO SCH (08:33)
[2017-08-08] MEDS: ALFUZOSIN HCL 10 MG TAB.SR.24H PO SCH (08:34)
[2017-08-08] MEDS: CHLORHEXIDINE GLUCONATE 15 ML MOUTHWASH MM SCH (08:34)
[2017-08-08] MEDS: TRIAMCINOLONE ACET 0.1% CREAM 15 GM TUBE TP SCH ×2 (08:38→17:11)
[2017-08-08] MEDS: PATIENT MAY USE OWN MED- MD OK PO SCH (08:51)
[2017-08-08 10:54] VITALS: BP 103/61
[2017-08-08] MEDS: RIVAROXABAN 10 MG TABLET PO SCH (17:12)
== END 2017-08-08 18:00 | DRG 56 ==
PROVIDERS: ADMIT Physical Medicine & Rehabilitation Pain Medicine; ATTEND Physical Medicine & Rehabilitation Pain Medicine
DX: I69.351 Hemiplegia and hemiparesis following cerebral infarction affecting right dominant side (principal); G93.40 Encephalopathy, unspecified; I82.411 Acute embolism and thrombosis of right femoral vein; D68.59 Other primary thrombophilia; I11.0 Hypertensive heart disease with heart failure; I50.9 Heart failure, unspecified; I82.421 Acute embolism and thrombosis of right iliac vein; E78.5 Hyperlipidemia, unspecified; G40.909 Epilepsy, unspecified, not intractable, without status epilepticus; I25.10 Atherosclerotic heart disease of native coronary artery without angina pectoris; K42.9 Umbilical hernia without obstruction or gangrene; Z74.01 Bed confinement status; T83.028D Displacement of other urinary catheter, subsequent encounter; R31.9 Hematuria, unspecified; F01.50 Vascular dementia, unspecified severity, without behavioral disturbance, psychotic disturbance, mood disturbance, and anxiety; K57.30 Diverticulosis of large intestine without perforation or abscess without bleeding; K80.20 Calculus of gallbladder without cholecystitis without obstruction; R29.810 Facial weakness; R53.1 Weakness; N40.0 Benign prostatic hyperplasia without lower urinary tract symptoms
CPT/HCPCS: 36415; 70030-TC; 83735; 84100; 85025; 92523; 92526; 92610; 97110; 97112; 97116; 97530; 97535; A4663

== ENCOUNTER 2017-12-09 19:23 | Inpatient (IN) | payer MEDICARE, MEDICAID ==
[~2017-12-09] VITALS: Ht 167.6 cm; Wt 76.7 kg
[~2017-12-09 19:23] MED LIST changes: -ANTACID PO; -SULF1TAB47 PO
[2017-12-09] MEDS ORDERED: ATOR40TA PO (19:59)
[2017-12-09] MEDS ORDERED: RIVA10TA PO (19:59)
[2017-12-09] MEDS ORDERED: ALFU10TA10 PO (19:59)
[2017-12-09] MEDS ORDERED: KETOCONAZOLE TOP (19:59)
[2017-12-09] MEDS ORDERED: FENOFIBRIC ACID PO (19:59)
[2017-12-09] MEDS ORDERED: ANTACID PO (19:59)
[2017-12-09 21:41] LABS: BASOPHILS % (AUTO) 0.6 % (0.0-2.0); EOSINOPHILS # (AUTO) 0.2 K/uL (0.0-0.7); EOSINOPHILS % (AUTO) 3.4 % (0.0-7.0); HEMATOCRIT 37.5 % (36.7-47.1); HEMOGLOBIN 12.8 g/dL (12.5-16.3); LYMPHOCYTES # (AUTO) 1.4 K/uL (20.0-40.0); LYMPHOCYTES % (AUTO) 24.4 % (20.5-51.5); MEAN CORPUSCULAR HEMOGLOBIN 30.8 uug (23.8-33.4); MEAN CORPUSCULAR HGB CONC 34 g/dL (32.5-36.3); MEAN CORPUSCULAR VOLUME 90.2 fL (73.0-96.2); MONOCYTES # (AUTO) 0.7 K/uL (2.0-10.0); MONOCYTES % (AUTO) 11.8 % (0.0-11.0); NEUTROPHILS # (AUTO) 3.5 K/uL (1.8-8.9); NEUTROPHILS % (AUTO) 59.8 % (38.5-71.5); PLATELET COUNT (AUTO) 312 K/uL (152-348); RED BLOOD CELL COUNT(AUTO) 4.16 MIL/uL (4.06-5.63); WHITE BLOOD COUNT (AUTO) 5.8 K/uL (3.6-10.2)
[2017-12-09 21:48] LABS: CREATININE 1.1 mg/dL (0.6-1.3); POTASSIUM 4.1 mmol/L (3.5-5.1)
[2017-12-09 21:54] LABS: BILIRUBIN,DIRECT 0.1 mg/dL (0.0-0.2); BILIRUBIN,TOTAL 0.2 mg/dL (0.2-1.0); TOTAL PROTEIN, SERUM 7.3 g/dL (6.4-8.2)
--- NOTE | 2017-12-10 00:02 | NUR ---
REPORT GIVEN TO [facility] NURSE, NUBIA MEZA
--- NOTE | 2017-12-10 01:30 | NUR ---
Pt. admitted to [facility], under care of Dr. RAO/BRITTANY Belongs List completed
--- NOTE | 2017-12-10 01:45 | NUR ---
PT WAS BROUGHT TO FLOOR VIA GURNEY. ADMITTED TO [facility] UNDER DR. RAO. INITIATE ADMISSION ASSESSMENT. BELONGING LIST REVIEWED, PT HAS VALUABLES (MONEY), KEPT TO SAFE GIVEN TO CHARGE NURSE. CALLED AND SPOKE BONI SOTO FOR ADMISSION ORDERS.
[2017-12-10 01:48] VITALS: BP 104/58
[2017-12-10] MEDS ORDERED: IBUPROFEN 400 MG TABLET PO PRN (02:30)
[2017-12-10] MEDS ORDERED: ACETAMINOPHEN ES 500 MG TABLET PO PRN (02:30)
[2017-12-10] MEDS ORDERED: ZOLPIDEM 5 MG TABLET PO PRN (02:30)
[2017-12-10] MEDS ORDERED: HYDROCODONE/APAP 5-325MG TABLET PO PRN (02:30)
[2017-12-10] MEDS ORDERED: ONDANSETRON 4 MG/2 ML VIAL IV PRN (02:30)
[2017-12-10] MEDS: IV NS 1000 ML 1,000 ML IV PRN ×2 (02:50→22:37)
[2017-12-10] MEDS ORDERED: HEPARIN/D5W DRIP 500 ML ONE (04:38)
[2017-12-10] MEDS: HEPARIN/D5W DRIP 500 ML IV PRN (05:30)
--- NOTE | 2017-12-10 06:33 | NUR ---
STARTED HEPARIN DRIP ORDERED. PT IN BED AT THIS TIME, RESTING, IN NO ACUTE SIGNS OF DISTRESS.
[2017-12-10 06:35] VITALS: BP 104/62
--- NOTE | 2017-12-10 07:15 | NUR ---
Received pt in bed sleeping, no apparent s/s of SOB, pain, distress or discomfort. Pt is on a heparin drip for right lower extremity blood clot.
[2017-12-10] MEDS ORDERED: HEPARIN SODIUM,PORCINE 5,000 UNITS/ML VIAL IV PRN ×2 (07:45)
[2017-12-10] MEDS: PANTOPRAZOLE SODIUM 40 MG TABLET.DR PO SCH (07:54)
[2017-12-10] MEDS: LEVETIRACETAM 500 MG TABLET PO SCH ×2 (08:22→20:13)
[2017-12-10] MEDS: OXYBUTYNIN XL 5 MG TABSR PO SCH (08:22)
[2017-12-10] MEDS: ASCORBIC ACID 500 MG TABLET PO SCH (08:22)
[2017-12-10] MEDS: CALCIUM CARB/VITAMIN D 500MG-200UNITS TABLET PO SCH (08:22)
[2017-12-10] MEDS ORDERED: CHLORHEXIDINE PO SCH (09:00)
[2017-12-10] MEDS ORDERED: [UNRECOGNIZED DRUG - OTHER] PO SCH (09:00)
[2017-12-10] MEDS ORDERED: Medication Not On Formulary EA (Multivitamins (Multivitamin) 1 TAB) PO SCH (09:00)
[2017-12-10] MEDS ORDERED: Medication Not On Formulary EA (Ascorbic Acid (Vitamin C) 500 MG) PO SCH (09:00)
--- NOTE | 2017-12-10 09:00 | NUR ---
Pt is noted to be compliant with morning medication. Noted right side weakness and pt's speech is slow, pt is able to understand when talking to him.
[2017-12-10] MEDS: MULTIVITAMINS,THERAPEUTIC TABLET PO SCH (09:18)
[2017-12-10] MEDS: FENOFIBRATE NANOCRYSTALLIZED 48 MG TABLET PO SCH (09:18)
[2017-12-10] MEDS: ALFUZOSIN HCL 10 MG TAB.SR.24H PO SCH (09:18)
[2017-12-10] MEDS: TRIAMCINOLONE ACET 0.1% CREAM 15 GM TUBE TP PRN (09:19)
[2017-12-10] MEDS: CHLORHEXIDINE GLUCONATE 15 ML MOUTHWASH MM SCH ×2 (09:19→20:13)
--- NOTE | 2017-12-10 11:14 | NUR ---
Spoke with the pt's niece, her mother Argelia Houston is the one that makes decisions for the pt. Niece is aware that the pharmacy is requesting the pt's HIV medication, niece stated she would inform her mother to contact the previous facility where the pt is staying in order to pick it up and bring to the hospital.
[2017-12-10 11:47] VITALS: BP 90/50
--- NOTE | 2017-12-10 11:50 | NUR ---
Seen and evaluated by . Pt is Setswana speaking, able to understand questions after translation.
--- NOTE | 2017-12-10 12:00 | NUR ---
PTT results at 62.6 at therapeutic levels, no change in heparin drip as protocol, will continue at the same rate. Next PTT will be drawn tomorrow 12/11/2017 at 0630 HRS
[2017-12-10 15:50] VITALS: BP 111/65
--- NOTE | 2017-12-10 15:52 | NUR ---
Pt noted to be sleeping in the room. heparin drip still running at this time.
--- NOTE | 2017-12-10 16:27 | NUR ---
Received a medicine box with the pt's medication from his previous facility brought in by his niece. Medication was taken down to pharmacy with the niece present.
--- NOTE | 2017-12-10 16:37 | NUR ---
Medication box brought back up to med-surg floor and given to the niece. HIV medication was noted to have , pharmacy unable to dispense medication. Niece is aware, took box back and will try to refill medication and bring it back to the hospital.
--- NOTE | 2017-12-10 17:18 | NUR ---
Spoke with Maria T from [facility] in regards to the pt's HIV medication. Maria T states that the medication in the cassette is a new refill, she was unaware that the prescription was not update with the latest refill date and states she can reach out to the pharmacy to update the prescription sheet until Tuesday. Maria T can be reach at [phone]
--- NOTE | 2017-12-10 19:20 | NUR ---
RECEIVED PT LYING IN BED. AAOX3. DIVEHI SPEAKING ONLY. DENIES ANY PAIN OR SOB WHEN ASKED. NOT IN ACUTE DISTRESS. O2 SAT AT 84% ON RA. IV SITE ON LEFT AC INTACT AND PATENT, HEPARIN INFUSING. RIGHT HAND IV SITE ALSO INTACT AND PATENT WITH NS IV INFUSING. SAFETY MEASURE INITIATED AND CALL JONES WITHIN REACH.
[2017-12-10] MEDS: SERTRALINE HCL 100 MG TABLET PO SCH (20:13)
[2017-12-10] MEDS: ATORVASTATIN 40 MG TABLET PO SCH (20:13)
[2017-12-10] MEDS: MIRTAZAPINE 15 MG TABLET PO SCH (20:13)
[2017-12-10 20:41] VITALS: BP 97/50
[2017-12-11] MEDS: HEPARIN/D5W DRIP 500 ML IV PRN (00:41)
[2017-12-11 05:28] VITALS: BP 102/59
[2017-12-11] MEDS: PANTOPRAZOLE SODIUM 40 MG TABLET.DR PO SCH (06:01)
--- NOTE | 2017-12-11 06:25 | NUR ---
AAOX3. GERMAN SPEAKING ONLY. DENIES ANY PAIN OR SOB. NOT IN ACUTE DISTRESS. VS WNL. O2 SAT AT 92% ON RA. IV SITE ON LEFT AC INTACT AND PATENT, HEPARIN CONTINUE TO INFUSE. RIGHT HAND IV SITE INTACT AND PATENT WITH NS IV INFUSING. RIGHT LEG STILL SWOLLEN. DENIES ANY PAIN ON AFFECTED AREA. SAFETY MEASURE MAINTAINED AND CALL JONES WITHIN REACH.
[2017-12-11 07:13] LABS: BASOPHILS # (AUTO) 0.1 K/uL (0.0-8.0); BASOPHILS % (AUTO) 1.2 % (0.0-2.0); EOSINOPHILS # (AUTO) 0.2 K/uL (0.0-0.7); EOSINOPHILS % (AUTO) 4.6 % (0.0-7.0); HEMATOCRIT 35.7 % (36.7-47.1); HEMOGLOBIN 12.2 g/dL (12.5-16.3); LYMPHOCYTES # (AUTO) 1.4 K/uL (20.0-40.0); LYMPHOCYTES % (AUTO) 28.1 % (20.5-51.5); MEAN CORPUSCULAR HEMOGLOBIN 30.8 uug (23.8-33.4); MEAN CORPUSCULAR HGB CONC 34 g/dL (32.5-36.3); MEAN CORPUSCULAR VOLUME 90.2 fL (73.0-96.2); MONOCYTES # (AUTO) 0.5 K/uL (2.0-10.0); MONOCYTES % (AUTO) 10.2 % (0.0-11.0); NEUTROPHILS # (AUTO) 2.7 K/uL (1.8-8.9); NEUTROPHILS % (AUTO) 55.9 % (38.5-71.5); PLATELET COUNT (AUTO) 315 K/uL (152-348); RED BLOOD CELL COUNT(AUTO) 3.96 MIL/uL (4.06-5.63); WHITE BLOOD COUNT (AUTO) 4.9 K/uL (3.6-10.2)
[2017-12-11 07:24] LABS: MAGNESIUM 1.7 mg/dL (1.8-2.4); PHOSPHOROUS 4.2 mg/dL (2.5-4.9); POTASSIUM 3.8 mmol/L (3.5-5.1)
--- NOTE | 2017-12-11 07:30 | NUR ---
Received patient resting in bed, in no distress. Patient is on Heparin drip running at 27units/hr as ordered. IVF running at 50ml/hr. Safety measures in place. Will continue plan of care.
--- NOTE | 2017-12-11 08:10 | NUR ---
Received critical lab report from lab aPTT 104.6 Will hold Heparin drip per protocol. MD notified. No new orders received. Will continue to assess and monitor.
--- NOTE | 2017-12-11 08:30 | NUR ---
Patient's right lower extremity redness, swelling/edema noted. Patient no c/o of right lower extremity, no c/o of SOB, chest pain.
[2017-12-11] MEDS: ASCORBIC ACID 500 MG TABLET PO SCH (08:55)
[2017-12-11] MEDS: MULTIVITAMINS,THERAPEUTIC TABLET PO SCH (08:55)
[2017-12-11] MEDS: OXYBUTYNIN XL 5 MG TABSR PO SCH (08:55)
[2017-12-11] MEDS: CALCIUM CARB/VITAMIN D 500MG-200UNITS TABLET PO SCH (08:55)
[2017-12-11] MEDS: CHLORHEXIDINE GLUCONATE 15 ML MOUTHWASH MM SCH ×2 (08:55→20:28)
[2017-12-11] MEDS: ALFUZOSIN HCL 10 MG TAB.SR.24H PO SCH (08:56)
[2017-12-11] MEDS: FENOFIBRATE NANOCRYSTALLIZED 48 MG TABLET PO SCH (08:56)
[2017-12-11] MEDS: TRIAMCINOLONE ACET 0.1% CREAM 15 GM TUBE TP PRN (08:59)
[2017-12-11] MEDS: LEVETIRACETAM 500 MG TABLET PO SCH ×2 (09:06→20:29)
--- NOTE | 2017-12-11 09:15 | NUR ---
Restarted heparin infusion at a decreased rate of 1100 units/hr or 22 units/ml per protocol. PTT ordered for 1515 today. Patient is alert, in no distress, no s/s of bleeding. Will continue to monitor.
[2017-12-11] MEDS ORDERED: MAGNESIUM OXIDE 400 MG TABLET PO ONE (10:00)
[2017-12-11 11:16] VITALS: BP 96/49
[2017-12-11 15:40] VITALS: BP 99/50
--- NOTE | 2017-12-11 16:15 | NUR ---
aPTT level at 33.0 seconds. Heparin infusion adjustment done per protocol. Bolus of Heparin 6,000 units given. Heparin drip rate increased from 1100 units/hr to 1400 units/hr or 28 units/ml. Patient is alert, no s/s of bleeding, no c/o of chest pain or SOB. Will continue to monitor.
[2017-12-11] MEDS: IV NS 1000 ML 1,000 ML IV PRN (17:51)
--- NOTE | 2017-12-11 18:00 | NUR ---
Patient slept intermittently throughout the shift. Patient in no distress, no c/o of SOB, chest pain. Fall, seizure and bleeding precaution in place. HOB up, right lower extremity elevated, repositioned for comfort. Heparin drip currently running at 1400 units/hr or 28 units/ml on the right hand IV access. IVF running at 50ml/hr on the left hand IV access. No infiltration noted on bilateral hand IV access. Safety measures in place. Will continue to monitor.
--- NOTE | 2017-12-11 19:35 | NUR ---
PT RECEIVED IN BED, AWAKE. A/OX2. FIJIAN SPEAKING, BUT ABLE TO MAKE NEEDS KNOWN. V/S STABLE. IN NOB ACUTE DISTRESS. NO C/O PAIN AT THIS TIME. IVF INFUSING ON LH, INTACT AND PATENT. IV HEPARIN INFUSING ON LH, INTACT AND PATENT. NO ACTIVE BLEED NOTED. ON RA, TOLERATING WELL. AFEBRILE. RIGHT LEG ELEVATED ON PILLOW. SAFETY MEASURES IMPLEMENTED. BED ALARM SET. CALL LIGHT PLACED WITHIN REACH.
[2017-12-11 20:11] VITALS: BP 104/59
[2017-12-11] MEDS: SERTRALINE HCL 100 MG TABLET PO SCH (20:29)
[2017-12-11] MEDS: MIRTAZAPINE 15 MG TABLET PO SCH (20:29)
[2017-12-11] MEDS: ATORVASTATIN 40 MG TABLET PO SCH (20:29)
--- NOTE | 2017-12-11 22:57 | NUR ---
HEPARIN DRIP HELD FOR 1 HOUR ND MD ORDER. IN STABLE CONDITION. NO ACUTE CHANGES NOTED
[2017-12-12] MEDS: HEPARIN/D5W DRIP 500 ML IV PRN (00:35)
--- NOTE | 2017-12-12 00:35 | NUR ---
APTT 142 SEC, MD AWARE. HEPARIN HELD FOR 1 HOUR PER MD ORDER. HEPARIN INFUSION ADJUSTED TO 3UNITS/KG LESS THAN PREVIOUS ORDER. INFUSION SETTING AT 1150 UNITS/HR OR 23CC/HR.
[2017-12-12 06:00] VITALS: BP 105/59
[2017-12-12] MEDS: PANTOPRAZOLE SODIUM 40 MG TABLET.DR PO SCH (06:00)
--- NOTE | 2017-12-12 06:05 | NUR ---
END OF SHIFT NOTES. PT SLEPT WELL THROUGHOUT SHIFT. IVF INFUSING. HEPARIN DRIP CONT TO INFUSE AT 23CC/HR. NO ACTIVE BLEED NOTED. aPTT FOR 0600 DRAWN, PENDING RESULTS. RIGHT LEG ELEVATED ON PILLOW. COMPLIANT WITH ALL CARE. ALL NEEDS ATTENDED. SAFETY MAINTAINED. CALL LIGHT REMAINS WITHIN REACH.
[2017-12-12 06:32] LABS: CREATININE 1.1 mg/dL (0.6-1.3); MAGNESIUM 1.8 mg/dL (1.8-2.4); POTASSIUM 3.7 mmol/L (3.5-5.1)
--- NOTE | 2017-12-12 06:42 | NUR ---
aPTT 68.7, NO CHANGES IN HEPARIN FLOW SETTINGS PER PROTOCOL.
--- NOTE | 2017-12-12 07:10 | NUR ---
Received report from color weigher nurse, patient in bed awake, no distress noted, bed in low position, side rails up x2.
[2017-12-12] MEDS: LEVETIRACETAM 500 MG TABLET PO SCH ×2 (08:41→20:00)
[2017-12-12] MEDS: CALCIUM CARB/VITAMIN D 500MG-200UNITS TABLET PO SCH (08:41)
[2017-12-12] MEDS: OXYBUTYNIN XL 5 MG TABSR PO SCH (08:42)
[2017-12-12] MEDS: ASCORBIC ACID 500 MG TABLET PO SCH (08:42)
[2017-12-12] MEDS: MULTIVITAMINS,THERAPEUTIC TABLET PO SCH (08:42)
[2017-12-12] MEDS: CHLORHEXIDINE GLUCONATE 15 ML MOUTHWASH MM SCH ×2 (08:42→20:00)
[2017-12-12] MEDS: FENOFIBRATE NANOCRYSTALLIZED 48 MG TABLET PO SCH (08:42)
[2017-12-12] MEDS: ALFUZOSIN HCL 10 MG TAB.SR.24H PO SCH (08:43)
[2017-12-12] MEDS ORDERED: WARF5TAB77 PO (11:04)
[2017-12-12] MEDS ORDERED: ENOX40DI SQ (11:09)
--- NOTE | 2017-12-12 11:15 | NUR ---
Heparin stopped as ordered
[2017-12-12 11:26] VITALS: BP 94/56
[2017-12-12] MEDS: ENOXAPARIN SODIUM 80 MG/0.8 ML DISP.SYRIN SQ SCH (13:57)
[2017-12-12 15:33] VITALS: BP 98/54
[2017-12-12] MEDS ORDERED: COUMADIN VARIABLE DOSE REMINDE XX SCH (17:00)
[2017-12-12] MEDS ORDERED: WARFARIN SODIUM 10 MG TABLET PO ONE (17:00)
[2017-12-12] MEDS: [UNRECOGNIZED DRUG - OTHER] PO SCH (18:32)
--- NOTE | 2017-12-12 19:16 | NUR ---
PATIENT HAS BEEN COOPERATIVE WITH CARE, MEDICATION RECEIVED FROM PHARMACY FACILITY REQUESTED A DELIVERY TONIGHT. CURRENTLY PATIENT IS IN BED, NO DISTRESS NOTED, BED IN LOW POSITION, SIDE RAILS UPX2, BED ALARM ON.
--- NOTE | 2017-12-12 19:25 | NUR ---
PT RECEIVED IN BED, AWAKE. A/OX3. NO ACUTE DISTRESS. V/S STABLE. NO C/O PAIN AT THIS TIME. IVF INFUSING. TOLERATING RA, WELL. RIGHT LEG ELEVATED ON PILLOW, SWELLING NOTED. HOB ELEVATED. SAFETY MEASURES IMPLEMENTED.. BED ALARM SET. CALL LIGHT WITHIN REACH.
[2017-12-12] MEDS: ATORVASTATIN 40 MG TABLET PO SCH (20:00)
[2017-12-12] MEDS: MIRTAZAPINE 15 MG TABLET PO SCH (20:00)
[2017-12-12] MEDS: SERTRALINE HCL 100 MG TABLET PO SCH (20:00)
[2017-12-12 20:17] VITALS: BP 95/54
[2017-12-13] MEDS: ENOXAPARIN SODIUM 80 MG/0.8 ML DISP.SYRIN SQ SCH (02:16)
--- NOTE | 2017-12-13 05:30 | NUR ---
END OF SHIFT NOTES. PT SLEPT WELL THROUGHOUT SHIFT. IVF INFUSING. TOLERATED RA WELL. AFEBRILE. RIGHT LEG CONT TO BE ELEVATED. COMPLIANT WITH ALL CARE. ALL NEEDS ATTENDED. SAFETY MAINTAINED. CALL LIGHT WITHIN REACH.
[2017-12-13 06:00] VITALS: BP 97/61
[2017-12-13] MEDS: PANTOPRAZOLE SODIUM 40 MG TABLET.DR PO SCH (06:00)
[2017-12-13] MEDS: LEVETIRACETAM 500 MG TABLET PO SCH (08:01)
[2017-12-13] MEDS: FENOFIBRATE NANOCRYSTALLIZED 48 MG TABLET PO SCH (08:01)
[2017-12-13] MEDS: MULTIVITAMINS,THERAPEUTIC TABLET PO SCH (08:01)
[2017-12-13] MEDS: OXYBUTYNIN XL 5 MG TABSR PO SCH (08:01)
[2017-12-13] MEDS: CHLORHEXIDINE GLUCONATE 15 ML MOUTHWASH MM SCH (08:01)
[2017-12-13] MEDS: ASCORBIC ACID 500 MG TABLET PO SCH (08:01)
[2017-12-13] MEDS: CALCIUM CARB/VITAMIN D 500MG-200UNITS TABLET PO SCH (08:01)
[2017-12-13] MEDS: ALFUZOSIN HCL 10 MG TAB.SR.24H PO SCH (08:01)
[2017-12-13] MEDS: [UNRECOGNIZED DRUG - OTHER] PO SCH (08:21)
[2017-12-13] MEDS: IV NS 1000 ML 1,000 ML IV PRN (10:24)
[2017-12-13 11:05] VITALS: BP 99/59
[2017-12-13] MEDS ORDERED: ENOXAPARIN SODIUM 80 MG/0.8 ML DISP.SYRIN SQ SCH (12:05)
[2017-12-13 15:06] VITALS: BP 99/55
--- NOTE | 2017-12-13 15:52 | NUR ---
D/C ORDERS RECEIVED NOTED AND CARRIED OUT,D/C INSTRUCTION AND EDUCATION GIVEN TO THE PT AND LONGTERM D/C HEPLOCK PER MD ORDERS.PT LEFT THE FACILITY VIA AMBULANCES IN STABLE CONDITION.
== END 2017-12-13 16:00 | DRG 300 ==
LOC: ER 19:23 → MED 12-10 00:07
PROVIDERS: ADMIT Nurse Practitioner Acute Care; ATTEND Internal Medicine
DX: I82.401 Acute embolism and thrombosis of unspecified deep veins of right lower extremity (principal); I69.851 Hemiplegia and hemiparesis following other cerebrovascular disease affecting right dominant side; Z86.718 Personal history of other venous thrombosis and embolism; G40.909 Epilepsy, unspecified, not intractable, without status epilepticus; Z79.01 Long term (current) use of anticoagulants
CPT/HCPCS: 36415; 70030-TC; 71045; 83735; 84100; 85025; 85610; 85730; 93005; A4663; J1644; J1650; J7030; J8499